=== PATIENT | female | born 1980 | race Hispanic/Latino ===

== ENCOUNTER 2019-12-13 23:07 | Emergency (ER) | payer SELFPAY ==
[~2019-12-13] VITALS: Ht 160 cm; Wt 61.7 kg
[~2019-12-13 23:07] MED LIST: PREDNISONE5 M1
[2019-12-14] MEDS ORDERED: ASPIRIN 81 MG CHEW TAB PO ONE (00:15)
[2019-12-14 00:39] LABS: BASOPHILS % 0.4 % (0.0-1.0); EOSINOPHILS # (AUTO) 0.1 (0.0-0.4); HEMATOCRIT 39.1 % (34.2-44.1); HEMOGLOBIN 12.9 g/dL (12.0-16.0); LYMPHOCYTES # (AUTO) 2.1 (1.0-3.2); LYMPHOCYTES % 29.3 % (18.0-39.1); MEAN CORPUSCULAR HEMOGLOBIN 29.7 pg (28-32); MEAN CORPUSCULAR VOLUME 89.9 fL (81-99); MONOCYTES # (AUTO) 0.5 (0.2-0.8); MONOCYTES % 7.4 % (4.4-11.3); NEUTROPHILS # (AUTO) 4.3 (2.1-6.9); NEUTROPHILS % 60.6 % (38.7-80.0); PLATELET COUNT 238 x10e3/uL (140-360); RED BLOOD COUNT 4.35 x10e6/uL (3.6-5.1); RED CELL DISTRIBUTION WIDTH 13.2 % (11.7-14.4)
[2019-12-14 01:00] LABS: BLOOD UREA NITROGEN 12 mg/dL (7-26); BUN/CREATININE RATIO 14 (6-25); CARBON DIOXIDE 22 mmol/L (22-29); CHLORIDE 107 mmol/L (98-107); CREATINE KINASE 63 IU/L (29-168); CREATININE, SERUM 0.83 mg/dL (0.57-1.11); EST GLOMERULAR FILTRATION RATE > 60 ML/MIN (60-); GLUCOSE 91 mg/dL (74-118); SODIUM 139 mmol/L (136-145)
--- NOTE | 2019-12-14 01:22 | Emergency Department Note ---
History of Present Illnes History of Present Illness Chief Complaint: Hypertension History of Present Illness This is a 39 year old female PRESENTS TO ED WITH CHEST TIGHTNESS AND HTN X2 MONTHS; HAS BEEN SEEN AT OTHER EMERGENCY ROOMS FOR SAME, STATES TOLD SHE NEEDS TO FOLLOW UP WITH CARDIOLOGY WHICH SHE HAS NOT DONE YET, STATES MOST RECENT OTHER EMERGENCY ROOM VISIT BEFORE TODAY WAS 2 DAYS AGO. Historian: Patient Arrival Mode: Car Street Department Dispatcher Required: No Onset (how long ago): month(s) (2) Location: CHEST Quality: TIGHTNESS Radiation: Reports non-radiation Severity: mild Onset quality: gradual Duration (how long): month(s) (2) Timing of current episode: intermittent Progression: unchanged Chronicity: recurrent Context: Denies recent illness, Denies recent surgery, Denies trauma/injury Relieving factors: none Exacerbating factors: none Associated symptoms: Reports denies other symptoms Treatments prior to arrival: none Past Medical/Family History Physician Review I have reviewed the patient's past medical and family history. Any updates have been documented here. Past Medical History Recent Fever: No Clinical Suspicion of Infectio: No New/Unexplained Change in Ment: No Past Medical History: None Past Surgical History: None Social History Smoking Cessation: Never Smoker Alcohol Use: None Any Illegal Drug Use: No Family History Family history of heart diseas: No Other Last Tetanus: UNK Review of Systems Review of Systems Constitutional: Reports no symptoms EENTM: Reports no symptoms Cardiovascular: Reports as per HPI Respiratory: Reports no symptoms Gastrointestinal: Reports no symptoms Genitourinary: Reports no symptoms Musculoskeletal: Reports no symptoms Integumentary: Reports no symptoms Neurological: Reports no symptoms Psychological: Reports no symptoms Endocrine: Reports no symptoms Hematological/Lymphatic: Reports no symptoms Physical Exam Related Data Allergies: Coded Allergies: Penicillins (Verified Allergy, Mild, 05/27/09) Triage Vital Signs Vital Signs Date Time Temp Pulse Resp B/P (MAP) Pulse Ox O2 Delivery O2 Flow Rate FiO2 12/14/19 00:01 98.2 71 18 126/89 100 Room Air Vital signs reviewed: Yes Physical Exam CONSTITUTIONAL Constitutional: Present well-developed, Present well-nourished; Absent distressed HENT HENT: Present normocephalic, Present atraumatic, Present oropharynx clear/moist, Present nose normal HENT L/R: Present left ext ear normal, Present right ext ear normal EYES Eyes: Reports PERRL, Reports conjunctivae normal NECK Neck: Present ROM normal PULMONARY Pulmonary: Present effort normal, Present breath sounds normal CARDIOVASCULAR Cardiovascular: Present regular rhythm, Present heart sounds normal, Present capillary refill normal, Present normal rate GASTROINTESTINAL Abdominal: Present soft, Present nontender, Present bowel sounds normal GENITOURINARY Genitourinary: Present exam deferred SKIN Skin: Present warm, Present dry MUSCULOSKELETAL Musculoskeletal: Present ROM normal NEUROLOGICAL Neurological: Present alert, Present oriented x 3, Present no gross motor or sensory deficits PSYCHOLOGICAL Psychological: Present mood/affect normal, Present judgement normal Results Laboratory Result Diagram: 12/14/192912/14/1929 Laboratory Laboratory Tests Test 12/14/19 00:30 White Blood Count 7.02 x10e3/uL (4.8-10.8) Red Blood Count 4.35 x10e6/uL (3.6-5.1) Hemoglobin 12.9 g/dL (12.0-16.0) Hematocrit 39.1 % (34.2-44.1) Mean Corpuscular Volume 89.9 fL (81-99) Mean Corpuscular Hemoglobin 29.7 pg (28-32) Mean Corpuscular Hemoglobin Concent 33.0 g/dL (31-35) Red Cell Distribution Width 13.2 % (11.7-14.4) Platelet Count 238 x10e3/uL (140-360) Neutrophils (%) (Auto) 60.6 % (38.7-80.0) Lymphocytes (%) (Auto) 29.3 % (18.0-39.1) Monocytes (%) (Auto) 7.4 % (4.4-11.3) Eosinophils (%) (Auto) 2.0 % (0.0-6.0) Basophils (%) (Auto) 0.4 % (0.0-1.0) Neutrophils # (Auto) 4.3 (2.1-6.9) Lymphocytes # (Auto) 2.1 (1.0-3.2) Monocytes # (Auto) 0.5 (0.2-0.8) Eosinophils # (Auto) 0.1 (0.0-0.4) Basophils # (Auto) 0.0 (0.0-0.1) Absolute Immature Granulocyte (auto 0.02 x10e3/uL (0-0.1) Sodium Level 139 mmol/L (136-145) Potassium Level 4.0 mmol/L (3.5-5.1) Chloride Level 107 mmol/L (98-107) Carbon Dioxide Level 22 mmol/L (22-29) Anion Gap 14.0 mmol/L (8-16) Blood Urea Nitrogen 12 mg/dL (7-26) Creatinine 0.83 mg/dL (0.57-1.11) Estimat Glomerular Filtration Rate > 60 ML/MIN (60-) BUN/Creatinine Ratio 14 (6-25) Glucose Level 91 mg/dL (74-118) Calcium Level 9.0 mg/dL (8.4-10.2) Creatine Kinase 63 IU/L (29-168) Creatine Kinase MB 0.10 ng/mL (0-5.0) Troponin I 0.001 ng/mL (0-0.300) Laboratory Tests Test 12/14/19 00:30 White Blood Count 7.02 x10e3/uL (4.8-10.8) Red Blood Count 4.35 x10e6/uL (3.6-5.1) Hemoglobin 12.9 g/dL (12.0-16.0) Hematocrit 39.1 % (34.2-44.1) Mean Corpuscular Volume 89.9 fL (81-99) Mean Corpuscular Hemoglobin 29.7 pg (28-32) Mean Corpuscular Hemoglobin Concent 33.0 g/dL (31-35) Red Cell Distribution Width 13.2 % (11.7-14.4) Platelet Count 238 x10e3/uL (140-360) Neutrophils (%) (Auto) 60.6 % (38.7-80.0) Lymphocytes (%) (Auto) 29.3 % (18.0-39.1) Monocytes (%) (Auto) 7.4 % (4.4-11.3) Eosinophils (%) (Auto) 2.0 % (0.0-6.0) Basophils (%) (Auto) 0.4 % (0.0-1.0) Neutrophils # (Auto) 4.3 (2.1-6.9) Lymphocytes # (Auto) 2.1 (1.0-3.2) Monocytes # (Auto) 0.5 (0.2-0.8) Eosinophils # (Auto) 0.1 (0.0-0.4) Basophils # (Auto) 0.0 (0.0-0.1) Absolute Immature Granulocyte (auto 0.02 x10e3/uL (0-0.1) Sodium Level 139 mmol/L (136-145) Potassium Level 4.0 mmol/L (3.5-5.1) Chloride Level 107 mmol/L (98-107) Carbon Dioxide Level 22 mmol/L (22-29) Anion Gap 14.0 mmol/L (8-16) Blood Urea Nitrogen 12 mg/dL (7-26) Creatinine 0.83 mg/dL (0.57-1.11) Estimat Glomerular Filtration Rate > 60 ML/MIN (60-) BUN/Creatinine Ratio 14 (6-25) Glucose Level 91 mg/dL (74-118) Calcium Level 9.0 mg/dL (8.4-10.2) Creatine Kinase 63 IU/L (29-168) Creatine Kinase MB 0.10 ng/mL (0-5.0) Troponin I 0.001 ng/mL (0-0.300) Lab results reviewed: Yes Imaging Imaging results reviewed: Yes Procedures 12 Lead ECG Interpretation ECG Interpretation : ECG: ECG 1 [address] Department Dispatcher: Interpreted by ED physician Date: Dec 14, 2019 Time: 00:32 Rhythm: sinus rhythm Rate: normal BPM: 64 Conduction: incomplete RBBB ST segments normal: Yes T waves normal: Yes Q waves: V1, V2 Clinical Impression: abnormal ECG Assessment & Plan Medical Decision Making MDM PT WITH INTERMITTENT CHEST TIGHTNESS FOR 2 MONTHS CBC, BMP, EKG, CARDIAC ENZYMES, CXR ORDERED TO EVAL FOR PNEUMONIA, MYOCARDIAL INFARCTION, ELECTROLYTE ABNORMALITY, RENAL INSUFFICIENCY Assessment & Plan Final Impression: (1) Chest pain Depart Disposition: HOME, SELF-CARE Last Vital Signs Date Time Temp Pulse Resp B/P (MAP) Pulse Ox O2 Delivery O2 Flow Rate FiO2 12/14/19 00:01 98.2 71 18 126/89 100 Room Air Home Meds Reported Medications Prednisone (PREDNISONE) 5 Mg Tab.ds.pk 06/20/13 Medications in the ED Aspirin 81 mg PRN ONCE PO ; Start 12/14/19 at 00:15; Stop 12/14/19 at 00:16; Status DC JOSE IRENE MD Dec 14, 2019 01:22
--- NOTE | 2019-12-14 01:26 | Diagnostic Imaging Report ---
EXAMINATION: CHEST SINGLE (PORTABLE) INDICATION: CHEST TIGHTNESS COMPARISON: None FINDINGS: TUBES and LINES: None. LUNGS: Normal lung volumes. Lungs are clear. No consolidations. PLEURA: No pleural effusion or pneumothorax. HEART AND MEDIASTINUM: The cardiomediastinal silhouette is unremarkable. BONES AND SOFT TISSUES: No acute osseous lesion. Soft tissues are unremarkable. UPPER ABDOMEN: No free air under the diaphragm. IMPRESSION: No acute thoracic radiographic abnormality. Signed by: Raza Calderon MD on 12/14/2019 1:23 AM
[2019-12-14 01:37] VITALS: BP 137/77
== END 2019-12-14 01:44 | disposition home or self-care (01) ==
LOC: ER 12-14 00:07
DX: R07.89 Other chest pain (principal)
CPT/HCPCS: 36415; 71045; 80048; 82550; 82553; 84484; 85025; 93005; 99284

== ENCOUNTER 2019-12-18 18:49 | Emergency (ER) | payer SELFPAY ==
[~2019-12-18] VITALS: Ht 160 cm; Wt 61.7 kg
[2019-12-18] MEDS ORDERED: SODIUM CHLORIDE 0.9% 1000ML 1,000 ML IV STA (18:54)
--- NOTE | 2019-12-18 18:56 | Emergency Department Note ---
History of Present Illnes History of Present Illness History of Present Illness This is a 39 year old female previously seen at [facility] BS and PCP presents to the ED for gen weakness and CP (tightness) . patient with previous h/o of 4 month long substernal CP s/p COVID-19 infection. Previous ED evaluation at [facility] and at [facility]. Seen at bedside with mild gen weakness Historian: Patient Arrival Mode: Car Onset (how long ago): week(s) Severity: moderate Duration (how long): week(s) Timing of current episode: constant Progression: worsening Chronicity: recurrent Context: Reports recent illness Relieving factors: none Exacerbating factors: none Associated symptoms: Reports chest pain, Reports weakness Treatments prior to arrival: none Previous service: tests performed, re-evaluation Past Medical/Family History Physician Review I have reviewed the patient's past medical and family history. Any updates have been documented here. Past Medical History Recent Fever: No Clinical Suspicion of Infectio: No New/Unexplained Change in Ment: No Past Medical History: None Past Surgical History: Appendectomy Social History Smoking Cessation: Never Smoker Alcohol Use: None Any Illegal Drug Use: No Other Last Tetanus: UNK Review of Systems Review of Systems Constitutional: Reports weakness EENTM: Reports no symptoms Cardiovascular: Reports chest pain Respiratory: Reports no symptoms Gastrointestinal: Reports no symptoms Genitourinary: Reports no symptoms Musculoskeletal: Reports no symptoms Integumentary: Reports no symptoms Neurological: Reports no symptoms Psychological: Reports no symptoms Endocrine: Reports no symptoms Hematological/Lymphatic: Reports no symptoms Physical Exam Related Data Allergies: Coded Allergies: prednisone (Verified Allergy, Intermediate, 12/18/19) Penicillins (Verified Allergy, Mild, 05/27/09) Triage Vital Signs Vital Signs Date Time Temp Pulse Resp B/P (MAP) Pulse Ox O2 Delivery O2 Flow Rate FiO2 12/18/19 19:02 97.5 92 18 146/71 100 Room Air Vital signs reviewed: Yes Physical Exam CONSTITUTIONAL Constitutional: Present ill appearing HENT HENT: Present normocephalic, Present atraumatic, Present oropharynx clear/moist, Present nose normal HENT L/R: Present left ext ear normal, Present right ext ear normal EYES Eyes: Reports PERRL, Reports conjunctivae normal NECK Neck: Present ROM normal PULMONARY Pulmonary: Present effort normal, Present breath sounds normal CARDIOVASCULAR Cardiovascular: Present regular rhythm, Present heart sounds normal, Present capillary refill normal, Present normal rate GASTROINTESTINAL Abdominal: Present soft, Present nontender, Present bowel sounds normal GENITOURINARY Genitourinary: Present exam deferred SKIN Skin: Present warm, Present dry MUSCULOSKELETAL Musculoskeletal: Present ROM normal NEUROLOGICAL Neurological: Present alert, Present oriented x 3, Present no gross motor or sensory deficits PSYCHOLOGICAL Psychological: Present mood/affect normal, Present judgement normal Results Laboratory Lab results reviewed: Yes Laboratory comments Laboratory Tests Test 12/18/19 19:30 White Blood Count 6.00 x10e3/uL (4.8-10.8) Red Blood Count 4.65 x10e6/uL (3.6-5.1) Hemoglobin 13.5 g/dL (12.0-16.0) Hematocrit 40.2 % (34.2-44.1) Mean Corpuscular Volume 86.5 fL (81-99) Mean Corpuscular Hemoglobin 29.0 pg (28-32) Mean Corpuscular Hemoglobin Concent 33.6 g/dL (31-35) Red Cell Distribution Width 13.2 % (11.7-14.4) Platelet Count 274 x10e3/uL (140-360) Neutrophils (%) (Auto) 71.4 % (38.7-80.0) Lymphocytes (%) (Auto) 19.8 % (18.0-39.1) Monocytes (%) (Auto) 7.2 % (4.4-11.3) Eosinophils (%) (Auto) 0.5 % (0.0-6.0) Basophils (%) (Auto) 0.8 % (0.0-1.0) Neutrophils # (Auto) 4.3 (2.1-6.9) Lymphocytes # (Auto) 1.2 (1.0-3.2) Monocytes # (Auto) 0.4 (0.2-0.8) Eosinophils # (Auto) 0.0 (0.0-0.4) Basophils # (Auto) 0.1 (0.0-0.1) Absolute Immature Granulocyte (auto 0.02 x10e3/uL (0-0.1) Sodium Level 141 mmol/L (136-145) Potassium Level 3.4 mmol/L (3.5-5.1) Chloride Level 108 mmol/L (98-107) Carbon Dioxide Level 21 mmol/L (22-29) Anion Gap 15.4 mmol/L (8-16) Blood Urea Nitrogen 12 mg/dL (7-26) Creatinine 0.75 mg/dL (0.57-1.11) Estimat Glomerular Filtration Rate > 60 ML/MIN (60-) BUN/Creatinine Ratio 16 (6-25) Glucose Level 104 mg/dL (74-118) Calcium Level 9.0 mg/dL (8.4-10.2) Total Bilirubin 0.4 mg/dL (0.2-1.2) Aspartate Amino Transf (AST/SGOT) 16 IU/L (5-34) Alanine Aminotransferase (ALT/SGPT) 14 IU/L (0-55) Alkaline Phosphatase 72 IU/L (40-150) Creatine Kinase 49 IU/L (29-168) Creatine Kinase MB 0.20 ng/mL (0-5.0) Troponin I 0.013 ng/mL (0-0.300) B-Type Natriuretic Peptide < 10.0 pg/mL (0-100) Total Protein 7.8 g/dL (6.5-8.1) Albumin 4.8 g/dL (3.5-5.0) Globulin 3.0 g/dL (2.3-3.5) Albumin/Globulin Ratio 1.6 (0.8-2.0) Human Chorionic Gonadotropin, Qual Negative (NEGATIVE) Urine Opiates Screen Negative (NEGATIVE) Urine Methadone Screen Negative (NEGATIVE) Urine Barbiturates Screen Negative (NEGATIVE) Urine Phencyclidine Screen Negative (NEGATIVE) Urine Amphetamines Screen Negative (NEGATIVE) Urine Methamphetamines Screen Negative (NEGATIVE) Urine Benzodiazepines Screen Negative (NEGATIVE) Urine Cocaine Screen Negative (NEGATIVE) Urine Cannabinoids Screen Negative (NEGATIVE) Imaging Imaging results reviewed: Yes Impressions [place] [id number] Patient Name: TENA SCRUGGS MR #: [id number] : 1980 Age/Sex: 39/F Req #: [id number] Adm Physician: Ordered by: JEAN CLAUDE ALLAN DO Report #: [id number] Location: ER Room/Bed: Procedure: [id number] CT/CT BRAIN WO Exam Date: 12/18/19 Exam Time: 2029 REPORT STATUS: Signed History: Feeling like passing out Comparison studies: None Technique: Axial images were obtained from the skull base to the vertex. Coronal and sagittal reconstructions obtained from the axial data. Dose modulation, iterative reconstruction, and/or weight based adjustment of the mA/kV was utilized to reduce the radiation dose to as low as reasonably achievable. Intravenous contrast: None Findings: Scalp/skull: No abnormalities. No fractures, blastic or lytic lesions. Extra-axial spaces: No masses. No fluid collections. Brain sulci: Appropriate for age. Ventricles: Normal in size and configuration. No hydrocephalus. Parenchyma: No abnormal densities. No masses, hemorrhage, acute or chronic cortical vascular insults. Sellar/suprasellar region: No abnormalities Craniocervical junction: Patent foramen magnum. No Chiari one malformation. Incidental findings: None. IMPRESSION: No abnormalities. Signed by: Dr. Nathaniel Clark M.D. on 12/18/2019 9:56 PM Dictated By: NATHANIEL CLARK MD, MD 55 Transcribed By: SONAL on 12/18/192155 COPY TO: JEAN CLAUDE ALLAN DO~ [place] [address] Patient Name: TENA SCRUGGS MR #: [id number] : 1980 Age/Sex: 39/F Req #: [id number] Adm Physician: Ordered by: JEAN CLAUDE ALLAN DO Report #: [id number] Location: Room/Bed: Procedure: [id number] CT/CT CHEST W Exam Date: 12/18/19 Exam Time: 2029 REPORT STATUS: Signed EXAM: CT Chest WITH contrast 12/18/2019 8:30 PM INDICATION: Chest pain and shortness of breath concerning for pulmonary embolism. COMPARISON: None TECHNIQUE: Chest was scanned utilizing a multidetector helical scanner from the lung apex through the level of the adrenal glands with administration of IV contrast. Coronal and sagittal reformations were obtained. Routine protocol was performed. IV CONTRAST: 100 mL of Omnipaque 300 COMPLICATIONS: None RADIATION DOSE: Total DLP: 510.89 mGy*cm Estimated effective dose: (DLP x 0.014 x size factor) mSv CTDIvol has been reviewed. It is below the limits set by the Radiation Protocol Committee (RPC). Dose modulation, iterative reconstruction, and/or weight based adjustment of the mA/kV was utilized to reduce the radiation dose to as low as reasonably achievable. FINDINGS: VASCULAR: There are no filling defects within the pulmonary arteries to the segmental level. The pulmonary trunk has normal caliber measuring 2.2 cm. The ascending and descending aorta have normal enhancement and caliber measuring 3.0 cm and 2.0 cm, respectively. LINES/ TUBES: None. LUNGS, PLEURA AND AIRWAYS: Evaluation of the lungs and pleura is limited by respiratory motion artifact. However, no focal consolidation, pleural effusion or pneumothorax. Airways are normal. PLEURA: The pleural spaces are clear. HEART AND MEDIASTINUM: The thyroid gland is normal. No mediastinal, hilar or axillary lymphadenopathy. The heart is normal in size. There is no pericardial effusion. UPPER ABDOMEN: Unremarkable. BONES: The visualized bony thorax is within normal limits. SOFT TISSUES: Unremarkable. IMPRESSION: 1. No evidence of pulmonary embolism to the segmental level. 2. No acute intrathoracic abnormality identified. 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: Interpreted by ED physician Date: Dec 18, 2019 Time: 19:14 Prior ECG tracings: reviewed Rate: normal BPM: 91 QRS axis: left ST segments normal: Yes T waves normal: Yes Q waves: aVR, V1 Clinical Impression: non-specific ECG Assessment & Plan Medical Decision Making MDM Diff Dx: ACS, PE, anxiety, CVA Assessment & Plan Final Impression: (1) Chest pain Depart Disposition: HOME, SELF-jail Meds Reported Medications Prednisone (PREDNISONE) 5 Mg Tab.ds.pk 06/20/13 Medications in the ED Sodium Chloride 1,000 ml @ 0 mls/hr Q0M STAT IV Last administered on 12/18/19at 20:14; Admin Dose 999 MLS/HR; Start 12/18/19 at 18:54; Stop 12/18/19 at 18:55; Status DC Aspirin 81 mg PRN ONCE PO ; Start 12/18/19 at 19:00; Stop 12/18/19 at 19:01; Status DC Sodium Chloride 50 ml @ ud STK-MED ONCE .ROUTE ; Start 12/18/19 at 20:26; Stop 12/18/19 at 20:19; Status DC Iopamidol 74,000 mg STK-MED ONCE INJ ; Start 12/18/19 at 20:26; Stop 12/18/19 at 20:19; Status DC JEAN CLAUDE ALLAN DO Dec 18, 2019 18:56
[2019-12-18] MEDS ORDERED: ASPIRIN 81 MG CHEW TAB PO ONE (19:00)
[2019-12-18 19:56] LABS: BASOPHILS # (AUTO) 0.1 (0.0-0.1); BASOPHILS % 0.8 % (0.0-1.0); EOSINOPHILS % 0.5 % (0.0-6.0); HEMATOCRIT 40.2 % (34.2-44.1); HEMOGLOBIN 13.5 g/dL (12.0-16.0); LYMPHOCYTES # (AUTO) 1.2 (1.0-3.2); LYMPHOCYTES % 19.8 % (18.0-39.1); MEAN CORPUSCULAR HGB CONC 33.6 g/dL (31-35); MEAN CORPUSCULAR VOLUME 86.5 fL (81-99); MONOCYTES # (AUTO) 0.4 (0.2-0.8); MONOCYTES % 7.2 % (4.4-11.3); NEUTROPHILS # (AUTO) 4.3 (2.1-6.9); NEUTROPHILS % 71.4 % (38.7-80.0); PLATELET COUNT 274 x10e3/uL (140-360); RED BLOOD COUNT 4.65 x10e6/uL (3.6-5.1); RED CELL DISTRIBUTION WIDTH 13.2 % (11.7-14.4)
[2019-12-18 20:11] LABS: ALANINE AMINOTRANSFERASE 14 IU/L (0-55); ALBUMIN 4.8 g/dL (3.5-5.0); ALBUMIN/GLOBULIN RATIO 1.6 (0.8-2.0); ALKALINE PHOSPHATASE 72 IU/L (40-150); ANION GAP 15.4 mmol/L (8-16); BLOOD UREA NITROGEN 12 mg/dL (7-26); BUN/CREATININE RATIO 16 (6-25); CARBON DIOXIDE 21 mmol/L (22-29); CHLORIDE 108 mmol/L (98-107); CREATINE KINASE 49 IU/L (29-168); CREATININE, SERUM 0.75 mg/dL (0.57-1.11); EST GLOMERULAR FILTRATION RATE > 60 ML/MIN (60-); GLUCOSE 104 mg/dL (74-118); POTASSIUM 3.4 mmol/L (3.5-5.1); SODIUM 141 mmol/L (136-145)
[2019-12-18 20:19] LABS: AMPHETAMINES SCREEN,URINE NEGATIVE (NEGATIVE); BENZODIAZEPINES SCREEN,URINE NEGATIVE (NEGATIVE); PHENCYCLIDINE SCREEN,URINE NEGATIVE (NEGATIVE)
[2019-12-18] MEDS ORDERED: IOPAMIDOL 370 MG/ML 200 ML INFUS..BTL INJ ONE (20:26)
[2019-12-18] MEDS ORDERED: SODIUM CHLORIDE 0.9% 50ML 50 ML ONE (20:26)
--- NOTE | 2019-12-18 21:57 | Diagnostic Imaging Report ---
EXAM: CT Chest WITH contrast 12/18/2019 8:30 PM INDICATION: Chest pain and shortness of breath concerning for pulmonary embolism. COMPARISON: None TECHNIQUE: Chest was scanned utilizing a multidetector helical scanner from the lung apex through the level of the adrenal glands with administration of IV contrast. Coronal and sagittal reformations were obtained. Routine protocol was performed. IV CONTRAST: 100 mL of Omnipaque 300 COMPLICATIONS: None RADIATION DOSE: Total DLP: 510.89 mGy*cm Estimated effective dose: (DLP x 0.014 x size factor) mSv CTDIvol has been reviewed. It is below the limits set by the Radiation Protocol Committee (RPC). Dose modulation, iterative reconstruction, and/or weight based adjustment of the mA/kV was utilized to reduce the radiation dose to as low as reasonably achievable. FINDINGS: VASCULAR: There are no filling defects within the pulmonary arteries to the segmental level. The pulmonary trunk has normal caliber measuring 2.2 cm. The ascending and descending aorta have normal enhancement and caliber measuring 3.0 cm and 2.0 cm, respectively. LINES/ TUBES: None. LUNGS, PLEURA AND AIRWAYS: Evaluation of the lungs and pleura is limited by respiratory motion artifact. However, no focal consolidation, pleural effusion or pneumothorax. Airways are normal. PLEURA: The pleural spaces are clear. HEART AND MEDIASTINUM: The thyroid gland is normal. No mediastinal, hilar or axillary lymphadenopathy. The heart is normal in size. There is no pericardial effusion. UPPER ABDOMEN: Unremarkable. BONES: The visualized bony thorax is within normal limits. SOFT TISSUES: Unremarkable. IMPRESSION: 1. No evidence of pulmonary embolism to the segmental level. 2. No acute intrathoracic abnormality identified. Signed by: Andre Walker MD on 12/18/2019 9:54 PM
--- NOTE | 2019-12-18 21:59 | Diagnostic Imaging Report ---
History: Feeling like passing out Comparison studies: None Technique: Axial images were obtained from the skull base to the vertex. Coronal and sagittal reconstructions obtained from the axial data. Dose modulation, iterative reconstruction, and/or weight based adjustment of the mA/kV was utilized to reduce the radiation dose to as low as reasonably achievable. Intravenous contrast: None Findings: Scalp/skull: No abnormalities. No fractures, blastic or lytic lesions. Extra-axial spaces: No masses. No fluid collections. Brain sulci: Appropriate for age. Ventricles: Normal in size and configuration. No hydrocephalus. Parenchyma: No abnormal densities. No masses, hemorrhage, acute or chronic cortical vascular insults. Sellar/suprasellar region: No abnormalities Craniocervical junction: Patent foramen magnum. No Chiari one malformation. Incidental findings: None. IMPRESSION: No abnormalities. Signed by: Dr. Nathaniel Clark M.D. on 12/18/2019 9:56 PM
[2019-12-18 22:27] VITALS: BP 132/79
== END 2019-12-18 22:43 | disposition home or self-care (01) ==
LOC: ER 19:33
DX: R07.89 Other chest pain (principal); R53.1 Weakness
CPT/HCPCS: 36415; 70450; 71260; 80053; 80307; 82550; 82553; 83880; 84484; 84702; 85025; 93005; 99283; J7030; Q9967